=== PATIENT | male | born 1960 | race Caucasian/White ===

== ENCOUNTER 2018-05-24 23:23 | Emergency (ER) | payer MEDICAID ==
--- NOTE | 2018-05-25 00:43 | ER Document Report ---
ED General - General Chief Complaint: Fall Injury Stated Complaint: FALL,FACIAL INJURY Time Seen by Provider: 05/24/18 23:38 Notes: Patient is a 58-year-old male with a history of traumatic brain injury he stays in assisted living. Takes the medicine at home and is not supposed to get up and walk about on his own. His post use a wheelchair. He tried to get up and he fell. He falls frequently. He hit his face. He has some deformity to his nose. Complains of some neck pain. He is not on blood thinners. The only medications he takes are his mood stabilizing medications and sleep medications. History is given mostly by his sister. TRAVEL OUTSIDE OF THE [place] IN LAST 30 DAYS: No - Related Data Allergies/Adverse Reactions: No Known Allergies Allergy (Verified 05/02/14 23:38) Past Medical History - Social History Smoking Status: Unknown if Ever Smoked Frequency of alcohol use: None Drug Abuse: None Family History: Reviewed & Not Pertinent Neurological Medical History: Reports: Hx Seizures - x1 several years ago Past Surgical History: Reports: Hx Tonsillectomy - Immunizations Hx Diphtheria, Pertussis, Tetanus Vaccination: No Review of Systems - Review of Systems Notes: My Normal Review Basic REVIEW OF SYSTEMS: CONSTITUTIONAL : Denies fever, chills, or sweats. Denies recent illness. EENT: Epistaxis which is now controlled. CARDIOVASCULAR: Denies chest pain. RESPIRATORY: Denies cough, cold, or chest congestion. Denies shortness of breath, difficulty breathing, or wheezing. GASTROINTESTINAL: Denies abdominal pain. Denies nausea, vomiting, or diarrhea. Denies constipation. Last BM: MUSCULOSKELETAL: Neck pain. Right elbow pain. SKIN: Denies rash or skin lesions. NEUROLOGICAL: Denies altered mental status or loss of consciousness. Denies sensory or motor loss. ALL OTHER SYSTEMS REVIEWED AND NEGATIVE. Physical Exam - Notes Notes: General Appearance: Well nourished, alert, cooperative, no acute distress, no obvious discomfort. Vitals: reviewed, See vital signs table. Head: no swelling or tenderness to the head Eyes: PERRL, EOMI, Conjuctiva clear Mouth: No decreasd moisture Nose: Patient has slight deformity to the nasal septum on exam. No septal hematoma. Dried blood in nares. Throat: No tonsillar inflammation, No airway obstruction, No lymphadenopathy Neck: Supple, some mild midline cervical spine tenderness. No step-offs or deformities. Back: No tenderness palpation of thoracic or lumbar spine. No step-offs or deformities. Lungs: No wheezing, No rales, No rhonci, No accessory muscle use, good air exchange bilaterally. Heart: Normal rate, Regular rythm, No murmur, no rub Abdomen: Normal BS, soft, No rigidity, No abdominal tenderness, No guarding, no rebound, no abdominal masses, no organomegaly Extremities: strength 5/5 in all extremities, good pulses in all extremities, extremities are nontender with full range of motion with exception of some pain over the right elbow. He has mild swelling to right elbow and a small skin tear of the right elbow. He has some pain with flexion of the right elbow., no edema. Skin: warm, dry, appropriate color, no rash Neuro: Patient at baseline is almost completely nonverbal. He does follow commands well. He will shake his head yes or no. He is able to move his extremities on his own. Is difficult to determine if there is any decrease in distal sensation on exam but patient does seem to respond to pinching of his extremities. Course - Re-evaluation Re-evalutation: 05/25/18 01:[address] scan shows nasal bone fracture. There is no septal hematoma. Patient is in no distress. Remainder of his x-rays and CT scans are negative. I talked to the patient's sister informed her that if he has difficulty breathing through his nose he does not like the way his nose looks after 1 week is to follow-up with the ENT doctor. I encourage him return to ER if she has severe headaches or vomiting. Patient's sister agrees with plan and patient will be discharged home. Dictation of this chart was performed using voice recognition software; therefore, there may be some unintended grammatical errors. Discharge - Discharge Clinical Impression: Nasal bone fracture Qualifiers: Encounter type: initial encounter Fracture type: closed Qualified Code(s): S02.2XXA - Fracture of nasal bones, initial encounter for closed fracture Fall Qualifiers: Encounter type: initial encounter Qualified Code(s): W19.XXXA - Unspecified fall, initial encounter Condition: Good Disposition: HOME, SELF-CARE Additional Instructions: Please follow up with the ENT doctor, Dr. Goncalves, in 1 week if you do not like the way your nose looks or is you are having any difficulty breathing through your nose. return to the ER immediately if you have severe headaches or vomiting. Referrals: HILARY GONCALVES DO [ASSOCIATE] - Follow up in 1 week
--- NOTE | 2018-05-25 01:26 | RADIOLOGY REPORT (SQ) ---
EXAM DESCRIPTION: XR ELBOW 1-2 VIEWS COMPLETED DATE/TME: 05/24/2018 23:46 CLINICAL HISTORY: 58 years, Male, trauma COMPARISON: None. NUMBER OF VIEWS: 3 LIMITATIONS: None. FINDINGS: 2.2 cm ossicular fragments of the medial condyle, mild osteoarthritis of the glenohumeral joint, small osteophyte medially at the ulnar olecranon. No gross effusion. IMPRESSION: No acute findings. 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
--- NOTE | 2018-05-25 01:40 | RADIOLOGY REPORT (SQ) ---
EXAM DESCRIPTION: CT HEAD WITHOUT IV CONTRAST COMPLETED DATE/TME: 05/24/2018 23:45 CLINICAL HISTORY: 58 years Male, trauma COMPARISON: 10.30.13 TECHNIQUE: No contrast. This exam was performed according to our departmental dose-optimization program, which includes automated exposure control, adjustment of the mA and/or kV according to patient size and/or use of iterative reconstruction technique. FINDINGS: No hemorrhage. No mass, mass effect, or midline shift. Moderate encephalomalacia of bilateral frontal lobes at the cerebral vertex, mild parenchymal volume loss, moderate ex vacuo enlargement of the frontal horn and body of bilateral lateral ventricles, atherosclerosis, mild left maxillary mucosal thickening, moderate dextroconvexity of the nasal bone with comminuted fracture involving the nasal septum and right paracentral nasal bone with 0.2 cm displacement relatively new compared with prior CT from July 2013. Brain and extra-axial structures appear otherwise intact. IMPRESSION: Nasal bone fracture. Chronic bilateral frontal infarct.
--- NOTE | 2018-05-25 01:50 | RADIOLOGY REPORT (SQ) ---
EXAM DESCRIPTION: CT CERVICAL SPINE WITHOUT IV CONTRAST COMPLETED DATE/TME: 05/24/2018 23:46 CLINICAL HISTORY: Trauma/injury COMPARISON: None available TECHNIQUE: Axial CT of the cervical spine obtained without contrast. FINDINGS: Straightening of the cervical lordosis is likely secondary to patient positioning. The atlantoaxial, atlantodental, and occipitoatlantal intervals are preserved. No fracture identified. Vertebral body height preserved. Prevertebral soft tissues are unremarkable. Moderate to severe loss of intervertebral disc height throughout the cervical spine with endplate spondylosis, uncovertebral spurring, and facet arthropathy. Mild multilevel osseous neural foraminal narrowing. No definite central canal osseous narrowing. Visualized skull base is intact. No fracture of the visualized facial bones. Visualized mastoid air cells and paranasal sinuses are well aerated. Visualized thyroid is unremarkable. No cervical lymphadenopathy. No pneumothorax in the visualized lung apices. Atherosclerotic vascular calcification. DLP: 416.71 mGy-cm IMPRESSION: 1. No acute fracture or subluxation of the cervical spine. 2. Moderate to severe degenerative change throughout the cervical spine. This exam was performed according to our departmental dose-optimization program, which includes automated exposure control, adjustment of the mA and/or kV according to patient size and/or use of iterative reconstruction technique.
--- NOTE | 2018-05-25 01:51 | RADIOLOGY REPORT (SQ) ---
EXAM DESCRIPTION: CT MAXILLOFACIAL WITHOUT IV CONTRAST COMPLETED DATE/TME: 05/24/2018 23:45 CLINICAL HISTORY: Trauma/injury COMPARISON: None available TECHNIQUE: Axial CT of the facial bone obtained without contrast. Coronal and sagittal reformatted images available. DLP: 513.29 mGy-cm FINDINGS: Orbits: Orbital floors and love are intact. Intraorbital contents: The globes are intact. Extraocular muscles are symmetric. No intraconal fat stranding. Nasal bones: Mildly displaced bilateral nasal bone fractures. Minimally displaced nasal septum fracture. Maxilla: The maxillary hard palate is intact. Maxillary antral love are intact. Sinuses: Minimal mucosal thickening of the left maxillary sinus. Zygomatic processes: Intact Pterygoid plates: Intact Mandible: Intact. No mandibular condylar dislocation. Skull base/cervical spine: Visualized portions of the skull base and cervical spine are intact. Visualized mastoid air cells are well aerated. Subcutaneous soft tissues: No abnormality noted in the subcutaneous soft tissues. Neck soft tissues: No definite abnormality involving the nasopharynx, oropharynx, or hypopharynx. Fossa of Rosenmuller are clear. Parotid glands and submandibular glands are unremarkable. No cervical lymphadenopathy. IMPRESSION: 1. Minimally displaced acute bilateral nasal bone fractures. Nondisplaced nasal septum fracture. This exam was performed according to our departmental dose-optimization program, which includes automated exposure control, adjustment of the mA and/or kV according to patient size and/or use of iterative reconstruction technique.
== END 2018-05-25 02:17 | disposition home or self-care (01) ==
LOC: ER 23:23
DX: S02.2XXA Fracture of nasal bones, initial encounter for closed fracture (principal); R04.0 Epistaxis; M54.2 Cervicalgia; M25.521 Pain in right elbow; W19.XXXA Unspecified fall, initial encounter; Z87.820 Personal history of traumatic brain injury; Z91.81 History of falling; Z79.899 Other long term (current) drug therapy
CPT/HCPCS: 70450; 70486; 72125; 99284